=== PATIENT | male | born 2000 | race Caucasian/White ===

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

== ENCOUNTER 2021-09-09 09:01 | Emergency (ER) | payer MEDICAID ==
[~2021-09-09] VITALS: Ht 167.6 cm; Wt 94.8 kg
[2021-09-09 09:13] VITALS: BP 181/98
--- NOTE | 2021-09-09 09:25 | NUR ---
Ambulated to bed 10 with steady/even gait
--- NOTE | 2021-09-09 09:30 | NUR ---
Dr. Beebe is evaluating pt at bedside
[2021-09-09] MEDS ORDERED: DICYCLOMINE HCL LIQUID 20 MG, ALUMINUM HYD/MAG/SIMETHICONE 30 ML, LIDOCAINE VISCOUS 2% ... PO ONE ×3 (09:35)
[2021-09-09] MEDS ORDERED: DICYCLOMINE HCL LIQUID 10 MG/5 ML UDC ONE (09:37)
[2021-09-09] MEDS ORDERED: ALUMINUM HYD/MAG/SIMETHICONE 30 ML UDC ONE (09:37)
--- NOTE | 2021-09-09 09:41 | NUR ---
21 y/o M BIB self from home c/o epigastric pain since Thursday. Patient A&Ox4, ambulatory, states epigastric pain 8/10, burning/constant, radiating up chest to throat. Worsens with sitting/lying and alleviates with guarding. Patient also states intermittent nausea and back pain. Denies meds prior to arrival. Denies urinary symptoms, n/v/d, constipation. Bed locked in lowest position, side rails x 1. PMH/Sx/Meds: Denies NKDA
--- NOTE | 2021-09-09 09:48 | NUR ---
RAD at bedside
--- NOTE | 2021-09-09 10:23 | NUR ---
Pt guarding abd states + relief to symptoms; 7/10 at this time.
--- NOTE | 2021-09-09 10:23 | NUR ---
Dr. Beebe is reevaluating pt at bedside
[2021-09-09] MEDS ORDERED: MAG-27 PO (10:26)
[2021-09-09] MEDS ORDERED: ONDA-188 PO (10:26)
--- NOTE | 2021-09-09 10:40 | NUR ---
Patient discharged with v/s stable. Written and verbal after care instructions given and explained. Patient alert, oriented and verbalized understanding of instructions. Ambulatory with steady gait. All questions addressed prior to discharge. ID band removed. Patient advised to follow up with PMD. Rx of Zofran ODT, Mylanta Max Strength Liq given. Patient educated on indication of medication including possible reaction and side effects. Opportunity to ask questions provided and answered.
[2021-09-09 10:41] VITALS: BP 122/76
== END 2021-09-09 22:40 | disposition home or self-care (01) ==
LOC: MED 09:01
DX: R10.13 Epigastric pain (principal); Z79.899 Other long term (current) drug therapy
CPT/HCPCS: 71045; 93005; 99283

== ENCOUNTER 2022-11-24 17:23 | Emergency (ER) | payer SELFPAY ==
[~2022-11-24] VITALS: Ht 172.7 cm; Wt 99.8 kg
[~2022-11-24 17:23] MED LIST: MAG-27 PO; ONDA-188 PO
[2022-11-24 17:36] VITALS: BP 150/78; PULSE 96; RESP 18; TEMP 97.3; O2SAT 98
== END 2022-11-24 18:00 | disposition left against medical advice (07) ==
LOC: MED 17:23
DX: M79.641 Pain in right hand (principal); Z53.21 Procedure and treatment not carried out due to patient leaving prior to being seen by health care provider
CPT/HCPCS: 99281